=== PATIENT | male | born 1965 | race Two or more races ===

== ENCOUNTER 2020-12-14 08:45 | Day surgery (SDC) | payer OTHER ==
[~2020-12-14 08:45] MED LIST: COZAAR25 MG PO; LIPITOR20 MG PO
[2020-12-14] MEDS ORDERED: PERCOCET 5-3251 EACH PO (10:35)
[2020-12-14] MEDS ORDERED: RECTICARE30 GM TOP (10:36)
== END 2020-12-14 16:20 | disposition home or self-care (01) ==
LOC: CIR.AMB 08:45
PROVIDERS: ATTEND Surgery
DX: K60.3 Anal fistula (principal); Z20.822 Contact with and (suspected) exposure to COVID-19

== ENCOUNTER 2021-11-22 08:38 | Outpatient (CLI) | payer OTHER ==
[~2021-11-22 08:38] MED LIST changes: +PERCOCET 5-3251 EACH PO; +RECTICARE30 GM TOP
== END 2021-11-22 08:44 | disposition home or self-care (01) ==
LOC: LAB 08:38
DX: D64.81 Anemia due to antineoplastic chemotherapy (principal); E03.8 Other specified hypothyroidism; E78.2 Mixed hyperlipidemia; E55.9 Vitamin D deficiency, unspecified; R73.01 Impaired fasting glucose; E11.65 Type 2 diabetes mellitus with hyperglycemia

== ENCOUNTER 2022-05-29 06:50 | Outpatient (CLI) | payer OTHER | END 2022-05-29 06:57 | disposition home or self-care (01) | LOC: LAB 06:50 | PROVIDERS: ATTEND Internal Medicine Endocrinology, Diabetes & Metabolism | DX: R94.5 Abnormal results of liver function studies (principal); E11.9 Type 2 diabetes mellitus without complications ==